=== PATIENT | male | born 2000 | race Caucasian/White ===

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

== ENCOUNTER 2021-01-17 21:38 | Emergency (ER) | payer BC, SELFPAY ==
[2021-01-17 21:49] VITALS: BP 122/75; PULSE 72; RESP 16; TEMP 36.3; O2SAT 99; BMI 19.8
--- NOTE | 2021-01-17 21:55 | US_ITS ---
PROCEDURE INFORMATION: Exam: US Scrotum Exam date and time: 01/17/21 09:55 PM Age: 20 years old Clinical indication: Scrotum pain; Patient HX: Left tesicular pain and some swelling no injury TECHNIQUE: Imaging protocol: Real-time ultrasound of the scrotum and contents with color Doppler and image documentation. COMPARISON: No relevant prior studies available. FINDINGS: Right testicle: Normal. No mass. No torsion. Normal vascular flow. Left testicle: Normal. No mass. No torsion. Normal vascular flow. Epididymides: Normal. Scrotum: Normal. IMPRESSION: Normal scrotal ultrasound.
[2021-01-17 21:59] LABS: Microscopic, Urine URINE MICROSCOPIC (MICROSCOPIC)
[2021-01-17 22:00] LABS: Appearance,Urine CLEAR (Clear); Bilirubin,Urine Negative (Negative); Blood, Urine Negative (Negative); Color,Urine YELLOW (Yellow); Glucose,Urine (UA) Negative (Negative); Ketones,Urine Negative (Negative); Leukocyte Esterase,Urine Negative (Negative); Nitrate,Urine Negative (Negative); PH,Urine 6.5 (5.0-8.5); Protein,Urine TRACE (Negative); Specific Gravity, Urine 1.025 (1.005-1.030)
[2021-01-17 22:23] LABS: Bacteria,Urine 1+ /lpf; Squamous Epithelial Cell,Urine Occasional #/hpf (0-5)
--- NOTE | 2021-01-17 23:33 | HMH.EDUROGM ---
ED Disposition Clinical Impression: Epididymitis, left Disposition: Home, Self-Care Condition on Discharge: Good Instructions: DI for Epididymitis Additional Instructions: use meds and see pcp or urology for follow up Referrals: Jerald Young MD [Primary Care Provider] - Ted Ortega MD [Staff Physician] - - Critical Care Critical Care Time: No Attestation: On 01/17/21, the high probability of a clinically significant, sudden or life threatening deterioration of the following system(s) required my full and direct attention, intervention and personal management. The time I documented below is in addition to time spent performing reported procedures but includes the following listed in this critical care notation. Medical Decision Making - Medical Records Medical records reviewed: Yes: I reviewed the patient's medical records. - Juan Jose Inquiry Pt receiving controlled substance: No Vital Signs: 01/17/21 21:49 Temperature 97.4 F L Temperature Source Oral Pulse Rate [Right Brachial] 72 Respiratory Rate 16 Blood Pressure [Right Arm] 122/75 Blood Pressure Mean [Right Arm] 90 Blood Pressure Source [Right Arm] Automatic Cuff Blood Pressure Position [Right Arm] Sitting 02 Sat by Pulse Oximetry 99 Oxygen Delivery Method Room Air - Lab Data Lab results reviewed: Yes: I reviewed the patient's lab results. Lab Results 01/17/21 21:50: Urine Color Yellow, Urine Appearance Clear, Urine pH 6.5, Ur Specific [place] 1.025, Urine Protein Trace, Urine Glucose (UA) Negative, Urine Ketones Negative, Urine Blood Negative, Urine Nitrate Negative, Urine Bilirubin Negative, Urine Urobilinogen 1.0, Ur Leukocyte Esterase Negative, Urine RBC 3-5, Urine WBC 5-10, Ur Squamous Epith Cells Occasional, Urine Bacteria 1+ - US Data US Images: Other (scrotal) ED US Reviewed: Yes: I have viewed radiologist's interpretation Preliminary Findings: Normal/NAD Medical Decision Narrative: no torsion by exam or u/s Male Urogenital HPI - General Chief complaint: Urogenital-Male Stated complaint: Male problems Time Seen by Provider: 01/17/21 23:37 Mode of Arrival: Family Vehicle Source of Information: Patient, Medical Record Limitations: No Limitations Description of Symptoms (Recalled from ER Triage Doc. by RN): PT COMPLAINS OF LEFT TESTICLE PAIN AND SWELLING FOR A COUPLE DAYS; NO RECENT CHANGE IN SEXUAL RELATIONS OR PARTNERS; DENIES ANY KNOWLEDGE OF STD'S OR NEW SYMPTOMS RELATED TO POSSIBLE STD'S. STATES HE HAD TO HAVE AN ULTRASOUND OF THE TESTICLES ONCE BEFORE DUE TO THIS. - History of Present Illness HPI Narrative: over the last 5 days has tender swollen lt testicle - no penile d/c or lesions and no trauma MD Complaint: testicle pain, testicle swelling Onset (ago): day(s) Location: left testicle Severity: moderate Reports: denies other symptoms - Related Data Sexually active: Yes Home Medications Medication Instructions Recorded Confirmed No Known Home Medications 01/17/21 01/17/21 Allergies Allergy/AdvReac Type Severity Reaction Status Date / Time No Known Allergies Allergy Verified 01/17/21 21:54 [facility] History - Hepatitis A Screen Drug use history?: No High risk sexual behaviors?: Yes History of sexually transmitted infection?: No Currently employed?: No Childcare worker?: No Do you have indoor plumbing?: Yes Do you have electricity?: Yes Attestation statement:: This patient has been screened for Hepatitis A risk factors. I have reviewed the patient's past medical history: Yes ROS Obtained: Yes All systems reviewed & no additional complaints - Constitutional Constitutional: Denies fever(s) - Eyes Eyes: Denies change in vision - ENT Ears, Nose, Mouth, and Throat: Denies sore throat - Cardiovascular Cardiovascular: Denies chest pain - Respiratory Respiratory: Denies shortness of breath - Gastrointestinal Gastrointestingal: Denies: abdominal pain - Genitourinary M
[2021-01-17 23:46] VITALS: BP 122/71; PULSE 81; RESP 18; TEMP 36.8; O2SAT 99
== END 2021-01-17 23:47 | disposition home or self-care (01) ==
PROVIDERS: Emergency Provider Emergency Medicine; PCP Family Medicine
DX: N45.1 Epididymitis (principal)
CPT/HCPCS: 76870; 81001; 99282

== ENCOUNTER 2021-01-26 17:11 | Emergency (ER) | payer BC, SELFPAY ==
[2021-01-26 17:44] VITALS: BP 142/83; PULSE 86; RESP 21; TEMP 37; O2SAT 100; BMI 20.3
--- NOTE | 2021-01-26 17:53 | HMH.EDUTC ---
[facility] [place] Clinical Impression: STD exposure Disposition: Home, Self-Care Condition on Discharge: Good Instructions: Chlamydia: The Silent STD, Chlamydia, DI for Gonorrhea Additional Instructions: Call back in 5-7 days to get the results of your STI testing No sex for the next 7days to allow the medication time to clear the infection Return if needed Follow up with your Family Doctor if no improvement or any worsening of symptoms Straight to ER if any life threatening symptoms Referrals: Yasir Sauer MD [Primary Care Provider] - As needed Time of Disposition: 18:13 Medical Decision Making - Juan Jose Inquiry Pt receiving controlled substance: No Juan Jose was queried for this patient: No Vital Signs: 01/26/21 17:44 Temperature 98.6 F Temperature Source Oral Pulse Rate [Left] 86 Respiratory Rate 21 Blood Pressure [Right Arm] 142/83 H Blood Pressure Mean [Right Arm] 102 02 Sat by Pulse Oximetry 100 Orders (Tests/Meds): ED MEDICATIONS Discontinued Medications Generic Name Dose Route Start Last Admin Trade Name Freq PRN Reason Stop Dose Admin Azithromycin 1,000 mg 01/26/21 18:04 01/26/21 18:29 Azithromycin 250mg Tablet PO 01/26/21 18:05 1,000 mg ONCE ONE Administration Protocol Ceftriaxone Sodium 0.5 gm 01/26/21 18:03 01/26/21 18:29 Ceftriaxone 1gm Vial IM 01/26/21 18:04 0.5 gm ONCE ONE Administration Protocol [facility]PI - General Stated complaint: SDI test Time Seen by Provider: 01/26/21 17:53 Mode of Arrival: Ambulatory Source of Information: Patient Limitations: No Limitations Description of Symptoms (Recalled from Triage Doc. by RN): pt states his ex called and told him she has chlymidia. pt now needs tested. HEENT Symptoms (Recalled from RN notes): No Resp Symptoms (Recalled from RN notes): No Skin Symptoms (Recalled from RN notes): No MS Symptoms (Recalled from RN notes): No Functional Status (Recalled from RN notes): na - History of Present Illness Provider Complaint: Patient state that his ex called and told him that she recently tested positive for Chlamydia State that he wanted to get checked and go ahead and get treated because he recenlty was seen and treated for Epididymyitis and was still having sex with her during his treatment - Related Data Previous Rx's Medication Instructions Recorded levoFLOXacin [Levaquin 500mg 500 mg PO DAILY #7 tab 01/17/21 tab] Allergies Allergy/AdvReac Type Severity Reaction Status Date / Time No Known Allergies Allergy Verified 01/17/21 21:54 - Worker's Comp Is this a Worker's Comp case?: No H History - Hepatitis A Screen Drug use history?: No High risk sexual behaviors?: No History of sexually transmitted infection?: No Currently employed?: No Childcare worker?: No Do you have indoor plumbing?: Yes Do you have electricity?: Yes Attestation statement:: This patient has been screened for Hepatitis A risk factors. I have reviewed the patient's past medical history: Yes ROS Obtained: Yes All systems reviewed & no additional complaints, Yes Systems reviewed as appropriate & no additional complaints - Constitutional Constitutional: Reports system reviewed and no additional complaints, except as docu, Denies body ache, Denies chills, Denies fever(s) - ENT Ears, Nose, Mouth, and Throat: Reports system reviewed and no additional complaints, except as docu - Cardiovascular Cardiovascular: Reports system reviewed and no additional complaints, except as docu - Respiratory Respiratory: Reports system reviewed and no additional complaints, except as docu - Gastrointestinal Gastrointestingal: Reports: system reviewed and no additional complaints, except as docu - Genitourinary Male Genitourinary: Reports system reviewed and no additional complaints, except as docu, Reports other (exposure to STD) - Musculoskeletal Musculoskeletal: Reports system reviewed and no additional c
[2021-01-26 18:43] VITALS: BP 137/82; PULSE 85; RESP 18; TEMP 36.9
[2021-01-28 22:42] LABS: Neisseria gonorrhoeae, NAA Negative (Negative)
== END 2021-01-26 18:48 | disposition home or self-care (01) ==
PROVIDERS: Emergency Provider Nurse Practitioner; PCP Emergency Medicine
DX: Z20.2 Contact with and (suspected) exposure to infections with a predominantly sexual mode of transmission (principal)
CPT/HCPCS: 87491; 87591; 96372; 99202; G0463